=== PATIENT | male | born 1965 | race African-American/Black ===

== ENCOUNTER 2019-02-16 09:09 | Emergency (ER) | payer OTHER ==
[~2019-02-16] VITALS: Ht 172.7 cm; Wt 95.0 kg
[2019-02-16] MEDS ORDERED: OXYCODONE HCL/ACETAMINOPHEN 5/325MG TABLET PO ONE (10:15)
[2019-02-16 11:22] VITALS: BP 187/88
== END 2019-02-16 11:22 | disposition home or self-care (01) ==
LOC: ER 09:09
DX: M54.2 Cervicalgia (principal); M25.512 Pain in left shoulder; M79.641 Pain in right hand; V43.52XA Car driver injured in collision with other type car in traffic accident, initial encounter; Y93.89 Activity, other specified; Y92.488 Other paved roadways as the place of occurrence of the external cause
CPT/HCPCS: 72040; 73030; 73130; 99283

== ENCOUNTER 2020-10-20 10:08 | Emergency (ER) | payer OTHER ==
[~2020-10-20] VITALS: Ht 182.9 cm; Wt 100.0 kg
[2020-10-20] MEDS ORDERED: AMLODIPINE 5MG TABLET PO ONE (10:30)
[2020-10-20] MEDS ORDERED: ASPIRIN 81MG TABLET PO ONE (10:30)
[2020-10-20 10:48] LABS: HEMOGLOBIN. 14.9 g/dL (14.0-18.0); MEAN CORPUSCULAR HEMOGLOBIN 28.9 pg (28.0-32.0); MEAN CORPUSCULAR VOLUME 85.3 fL (80.0-94.0); MEAN PLATELET VOLUME 8.6 fl (7.4-10.4); PLATELET 212 x1000/uL (130-400); RED BLOOD CELL COUNT 5.15 mill/uL (4.7-6.1); RED CELL DISTRIBUTION WIDTH 13.6 % (11.6-14.6)
[2020-10-20 10:55] LABS: CHLORIDE 106 mEq/L (98-107)
[2020-10-20 11:30] LABS: PLATELET ESTIMATE NORMAL
[2020-10-20] MEDS ORDERED: CYCL10TA7 MT (11:43)
[2020-10-20] MEDS ORDERED: AMLO5TAB4 MT (11:43)
[2020-10-20] MEDS ORDERED: KETOROLAC 60MG/2ML VIAL IM ONE (11:45)
[2020-10-20 12:01] VITALS: BP 176/114
== END 2020-10-20 12:14 | disposition home or self-care (01) ==
LOC: ER 10:08
DX: I16.0 Hypertensive urgency (principal); I10 Essential (primary) hypertension
CPT/HCPCS: 36415; 71045; 80053; 83880; 84484; 85025; 93005; 96372; 99285; J1885; Z7610